=== PATIENT | female | born 1940 | race Caucasian/White ===

== ENCOUNTER 2020-04-27 11:16 | Inpatient (IN) | payer OTHER ==
[2020-04-27 11:20] VITALS: BMI 27.4
[2020-04-27 12:58] LABS: BASO % 0.2 % (0-2.0); HEMATOCRIT 41.8 % (32.4-45.2); HEMOGLOBIN 14.3 GM/dL (10.7-15.3); MCH 30.8 pg (25.7-33.7); MCHC 34.1 g/dl (32.0-36.0); MEAN CELL VOLUME 90.1 fl (80-96); MEAN PLT VOLUME 8.5 fl (7.5-11.1); MONO % 6.7 % (3.8-10.2); NEUT % 86.1 % (42.8-82.8); PLATELET COUNT 222 K/MM3 (134-434); RBC 4.64 M/mm3 (3.60-5.2); RDW 13.7 % (11.6-15.6); WHITE BLOOD COUNT 7.8 K/mm3 (4.0-10.0)
[2020-04-27] MEDS ORDERED: ACETAMINOPHEN 1000 MG/100 ML VIAL (NON FORMULARY) IVPB ONE (13:08)
[2020-04-27 13:11] LABS: VENOUS BASE EXCESS -3.9 mmol/L (-2-2); VENOUS O2 SATURATION 36.8 % (70-80); VENOUS PCO2 40.9 mmHg (38-52); VENOUS PH 7.341 (7.310-7.410)
[2020-04-27] MEDS ORDERED: LACTATED RINGERS SOLUTION 1000 ML INFUS.BAG IV ONE (13:15)
[2020-04-27 13:17] LABS: INR 0.93 (0.83-1.09); PROTHROMBIN TIME (PATIENT) 11.3 SEC (9.7-13.0)
[2020-04-27 13:25] LABS: ACTIVATED PTT 28.3 SECONDS (25.2-36.5)
[2020-04-27 13:26] LABS: CALCIUM 9.1 mg/dL (8.5-10.1); CHLORIDE 120 mmol/L (98-107); POTASSIUM 4.8 mmol/L (3.5-5.1)
[2020-04-27 13:28] LABS: ALBUMIN 3.8 g/dl (3.4-5.0); BLOOD UREA NITROGEN 17.6 mg/dL (7-18); CO2 23 mmol/L (21-32); GLUCOSE,RANDOM 107 mg/dL (74-106); MAGNESIUM 2.2 mg/dL (1.8-2.4)
[2020-04-27 13:31] LABS: CREATININE 1.1 mg/dL (0.55-1.3); SGOT/AST 47 U/L (15-37); SGPT/ALT 28 U/L (13-61)
[2020-04-27 13:33] LABS: BILIRUBIN,TOTAL 0.9 mg/dL (0.2-1); TOT PROT 7.8 g/dl (6.4-8.2)
[2020-04-27 13:34] LABS: ALK PHOS 204 U/L (45-117)
[2020-04-27 13:53] LABS: BILIRUBIN,DIRECT 0.3 mg/dL (0.0-0.2)
[2020-04-27 13:56] LABS: ANION GAP -3 MMOL/L (8-16); SODIUM 140 mmol/L (136-145)
[2020-04-27 13:58] LABS: LDH 309 U/L (84-246)
[2020-04-27] MEDS ORDERED: ACETAMINOPHEN INJECTION 100 ML IVPB ONE (14:46)
[2020-04-27] MEDS ORDERED: DEXAMETHASONE SOD PHOSPHATE 4 MG/1 ML VIAL IVPUSH ONE (15:25)
[2020-04-27] MEDS ORDERED: DEXAMETHASONE SOD PHOSPHATE 10 MG/1 ML VIAL ONE (15:41)
[2020-04-27] MEDS ORDERED: LIDOCAINE 5% TOPICAL PATCH TP ONE (18:01)
[2020-04-27] MEDS ORDERED: LIDOCAINE 5% TOPICAL PATCH ONE (19:13)
[2020-04-27] MEDS ORDERED: ACETAMINOPHEN 325 MG TABLET (FP) PO PRN (21:11)
[2020-04-27] MEDS ORDERED: ALBUTEROL SO4 HFA INHALER IH PRN (21:12)
[2020-04-27] MEDS: FAMOTIDINE 20 MG TABLET PO SCH (22:50)
[2020-04-28] MEDS ORDERED: LIDOCAINE PATCH REMOVAL MC SCH (06:00)
[2020-04-28 08:17] LABS: BASO % 0.2 % (0-2.0); HEMATOCRIT 35.3 % (32.4-45.2); HEMOGLOBIN 12.2 GM/dL (10.7-15.3); LYMPH % 12.7 % (8-40); MCH 30.7 pg (25.7-33.7); MCHC 34.5 g/dl (32.0-36.0); MEAN CELL VOLUME 89.1 fl (80-96); MEAN PLT VOLUME 8.9 fl (7.5-11.1); MONO % 9.1 % (3.8-10.2); PLATELET COUNT 183 K/MM3 (134-434); RBC 3.96 M/mm3 (3.60-5.2); RDW 13.6 % (11.6-15.6); WHITE BLOOD COUNT 4.6 K/mm3 (4.0-10.0)
[2020-04-28 08:44] LABS: CHLORIDE 109 mmol/L (98-107); POTASSIUM 3.9 mmol/L (3.5-5.1); SODIUM 142 mmol/L (136-145)
[2020-04-28 08:49] LABS: ALBUMIN 2.8 g/dl (3.4-5.0); ANION GAP 9 MMOL/L (8-16); BLOOD UREA NITROGEN 17.8 mg/dL (7-18); CALCIUM 8.1 mg/dL (8.5-10.1); CO2 23 mmol/L (21-32); GLUCOSE,RANDOM 91 mg/dL (74-106)
[2020-04-28 08:52] LABS: CREATININE 0.8 mg/dL (0.55-1.3); SGPT/ALT 23 U/L (13-61)
[2020-04-28 08:53] LABS: BILIRUBIN,TOTAL 0.5 mg/dL (0.2-1); LDH 208 U/L (84-246); PHOSPHOROUS 3.9 mg/dL (2.5-4.9); SGOT/AST 30 U/L (15-37)
[2020-04-28 09:06] LABS: ALK PHOS 156 U/L (45-117)
[2020-04-28] MEDS ORDERED: CHOLECALCIFEROL (VIT D3) 1,000 UNIT (25 MCG) TABLET PO SCH (10:00)
[2020-04-28] MEDS: DEXAMETHASONE SOD PHOSPHATE 4 MG/1 ML VIAL IVPUSH SCH (10:15)
[2020-04-28] MEDS: ZINC SULFATE 220 MG CAPSULE (FP) PO SCH (10:15)
[2020-04-28] MEDS: amLODIPine BESYLATE 5 MG TABLET (FP) PO SCH (10:15)
[2020-04-28] MEDS: FAMOTIDINE 20 MG TABLET PO SCH ×2 (10:15→21:58)
[2020-04-28] MEDS: ENOXAPARIN NA (PORCINE) 40 MG/0.4 ML DISP.SYRIN SQ SCH (10:15)
[2020-04-28] MEDS: ASCORBIC ACID 500 MG TABLET (FP) PO SCH (10:16)
[2020-04-28] MEDS: BUDESONIDE/FORMETEROL FUMARATE 160/4.5 mcg INHALER IH SCH ×2 (10:16→22:10)
[2020-04-28] MEDS: CHOLECALCIFEROL (VIT D3) 1,000 UNIT (25 MCG) TABLET PO SCH (11:45)
[2020-04-28] MEDS: ATORVASTATIN CA 40 MG TABLET (FP) PO SCH (21:58)
[2020-04-29 07:29] LABS: BASO % 0.2 % (0-2.0); HEMATOCRIT 35.4 % (32.4-45.2); HEMOGLOBIN 12.1 GM/dL (10.7-15.3); LYMPH % 10.4 % (8-40); MCH 30.8 pg (25.7-33.7); MCHC 34.2 g/dl (32.0-36.0); MEAN CELL VOLUME 90.1 fl (80-96); MEAN PLT VOLUME 9.1 fl (7.5-11.1); NEUT % 84.4 % (42.8-82.8); PLATELET COUNT 205 K/MM3 (134-434); RBC 3.93 M/mm3 (3.60-5.2); RDW 13.8 % (11.6-15.6); WHITE BLOOD COUNT 6.8 K/mm3 (4.0-10.0)
[2020-04-29 08:04] LABS: POTASSIUM 3.6 mmol/L (3.5-5.1)
[2020-04-29 08:16] LABS: CALCIUM 8.6 mg/dL (8.5-10.1)
[2020-04-29 08:17] LABS: ALBUMIN 2.8 g/dl (3.4-5.0); MAGNESIUM 2.2 mg/dL (1.8-2.4)
[2020-04-29 08:22] LABS: BILIRUBIN,TOTAL 0.5 mg/dL (0.2-1); TOT PROT 6.1 g/dl (6.4-8.2)
[2020-04-29 08:24] LABS: CREATININE 0.9 mg/dL (0.55-1.3)
[2020-04-29] MEDS: ENOXAPARIN NA (PORCINE) 40 MG/0.4 ML DISP.SYRIN SQ SCH (09:38)
[2020-04-29] MEDS: CHOLECALCIFEROL (VIT D3) 1,000 UNIT (25 MCG) TABLET PO SCH (09:38)
[2020-04-29] MEDS: ZINC SULFATE 220 MG CAPSULE (FP) PO SCH (09:39)
[2020-04-29] MEDS: FAMOTIDINE 20 MG TABLET PO SCH ×2 (09:39→22:19)
[2020-04-29] MEDS: amLODIPine BESYLATE 5 MG TABLET (FP) PO SCH (09:39)
[2020-04-29] MEDS: ASCORBIC ACID 500 MG TABLET (FP) PO SCH (09:39)
[2020-04-29] MEDS: BUDESONIDE/FORMETEROL FUMARATE 160/4.5 mcg INHALER IH SCH ×2 (09:39→22:19)
[2020-04-29] MEDS: DEXAMETHASONE SOD PHOSPHATE 4 MG/1 ML VIAL IVPUSH SCH (09:39)
[2020-04-29] MEDS ORDERED: POTASSIUM CHLORIDE TABS 20 MEQ TABLET.ER (FP) PO ONE (14:44)
[2020-04-29] MEDS ORDERED: PT OWN MED DRAWER 7, Y5N ONE (15:06)
[2020-04-29] MEDS: ATORVASTATIN CA 40 MG TABLET (FP) PO SCH (22:19)
[2020-04-30 07:39] LABS: BASO % 0.3 % (0-2.0); HEMATOCRIT 33.6 % (32.4-45.2); HEMOGLOBIN 11.5 GM/dL (10.7-15.3); LYMPH % 14.5 % (8-40); MCH 30.9 pg (25.7-33.7); MCHC 34.3 g/dl (32.0-36.0); MEAN CELL VOLUME 90.1 fl (80-96); MEAN PLT VOLUME 8.9 fl (7.5-11.1); MONO % 12.1 % (3.8-10.2); NEUT % 73.1 % (42.8-82.8); PLATELET COUNT 198 K/MM3 (134-434); RBC 3.73 M/mm3 (3.60-5.2); RDW 13.6 % (11.6-15.6); WHITE BLOOD COUNT 5.1 K/mm3 (4.0-10.0)
[2020-04-30 08:06] LABS: POTASSIUM 4.1 mmol/L (3.5-5.1)
[2020-04-30 08:57] LABS: CALCIUM 8.2 mg/dL (8.5-10.1)
[2020-04-30 08:58] LABS: ALBUMIN 2.6 g/dl (3.4-5.0); BLOOD UREA NITROGEN 17.7 mg/dL (7-18); MAGNESIUM 2.1 mg/dL (1.8-2.4)
[2020-04-30] MEDS: ASCORBIC ACID 500 MG TABLET (FP) PO SCH (08:59)
[2020-04-30] MEDS: ENOXAPARIN NA (PORCINE) 40 MG/0.4 ML DISP.SYRIN SQ SCH (08:59)
[2020-04-30] MEDS: ZINC SULFATE 220 MG CAPSULE (FP) PO SCH (09:00)
[2020-04-30] MEDS: DEXAMETHASONE SOD PHOSPHATE 4 MG/1 ML VIAL IVPUSH SCH (09:00)
[2020-04-30] MEDS: amLODIPine BESYLATE 5 MG TABLET (FP) PO SCH (09:00)
[2020-04-30] MEDS: CHOLECALCIFEROL (VIT D3) 1,000 UNIT (25 MCG) TABLET PO SCH (09:00)
[2020-04-30] MEDS: FAMOTIDINE 20 MG TABLET PO SCH ×2 (09:00→21:14)
[2020-04-30] MEDS: BUDESONIDE/FORMETEROL FUMARATE 160/4.5 mcg INHALER IH SCH ×2 (09:00→21:18)
[2020-04-30 09:01] LABS: CREATININE 0.8 mg/dL (0.55-1.3)
[2020-04-30 09:02] LABS: BILIRUBIN,TOTAL 0.6 mg/dL (0.2-1)
[2020-04-30 09:03] LABS: TOT PROT 5.8 g/dl (6.4-8.2)
[2020-04-30] MEDS: ATORVASTATIN CA 40 MG TABLET (FP) PO SCH (21:14)
[2020-05-01 09:38] LABS: BASO % 0.1 % (0-2.0); EOS % 0.1 % (0-4.5); HEMATOCRIT 36.7 % (32.4-45.2); HEMOGLOBIN 12.7 GM/dL (10.7-15.3); LYMPH % 14.6 % (8-40); MCH 30.7 pg (25.7-33.7); MCHC 34.7 g/dl (32.0-36.0); MEAN CELL VOLUME 88.7 fl (80-96); MEAN PLT VOLUME 9.3 fl (7.5-11.1); MONO % 13.1 % (3.8-10.2); NEUT % 72.1 % (42.8-82.8); PLATELET COUNT 282 K/MM3 (134-434); RBC 4.13 M/mm3 (3.60-5.2); RDW 13.4 % (11.6-15.6); WHITE BLOOD COUNT 7.1 K/mm3 (4.0-10.0)
[2020-05-01 09:53] LABS: POTASSIUM 4.1 mmol/L (3.5-5.1)
[2020-05-01] MEDS: DEXAMETHASONE SOD PHOSPHATE 4 MG/1 ML VIAL IVPUSH SCH (10:25)
[2020-05-01] MEDS: amLODIPine BESYLATE 5 MG TABLET (FP) PO SCH (10:25)
[2020-05-01] MEDS: ENOXAPARIN NA (PORCINE) 40 MG/0.4 ML DISP.SYRIN SQ SCH (10:25)
[2020-05-01] MEDS: BUDESONIDE/FORMETEROL FUMARATE 160/4.5 mcg INHALER IH SCH ×2 (10:25→21:08)
[2020-05-01] MEDS: ASCORBIC ACID 500 MG TABLET (FP) PO SCH (10:25)
[2020-05-01] MEDS: FAMOTIDINE 20 MG TABLET PO SCH ×2 (10:26→21:07)
[2020-05-01] MEDS: CHOLECALCIFEROL (VIT D3) 1,000 UNIT (25 MCG) TABLET PO SCH (10:26)
[2020-05-01] MEDS: ZINC SULFATE 220 MG CAPSULE (FP) PO SCH (10:26)
[2020-05-01 10:27] LABS: CALCIUM 8.7 mg/dL (8.5-10.1)
[2020-05-01 10:28] LABS: ALBUMIN 2.9 g/dl (3.4-5.0); BLOOD UREA NITROGEN 15.6 mg/dL (7-18); MAGNESIUM 2.2 mg/dL (1.8-2.4)
[2020-05-01 10:31] LABS: CREATININE 0.8 mg/dL (0.55-1.3)
[2020-05-01 10:32] LABS: TOT PROT 6.5 g/dl (6.4-8.2)
[2020-05-01] MEDS: ATORVASTATIN CA 40 MG TABLET (FP) PO SCH (21:07)
[2020-05-02] MEDS: ASCORBIC ACID 500 MG TABLET (FP) PO SCH (09:44)
[2020-05-02] MEDS: ZINC SULFATE 220 MG CAPSULE (FP) PO SCH (09:44)
[2020-05-02] MEDS: amLODIPine BESYLATE 5 MG TABLET (FP) PO SCH (09:44)
[2020-05-02] MEDS: DEXAMETHASONE SOD PHOSPHATE 4 MG/1 ML VIAL IVPUSH SCH (09:44)
[2020-05-02] MEDS: ENOXAPARIN NA (PORCINE) 40 MG/0.4 ML DISP.SYRIN SQ SCH (09:44)
[2020-05-02] MEDS: FAMOTIDINE 20 MG TABLET PO SCH ×2 (09:45→21:45)
[2020-05-02] MEDS: BUDESONIDE/FORMETEROL FUMARATE 160/4.5 mcg INHALER IH SCH ×2 (09:45→21:45)
[2020-05-02] MEDS: CHOLECALCIFEROL (VIT D3) 1,000 UNIT (25 MCG) TABLET PO SCH (09:45)
[2020-05-02 15:36] LABS: BASO % 0.2 % (0-2.0); HEMATOCRIT 34.8 % (32.4-45.2); HEMOGLOBIN 11.9 GM/dL (10.7-15.3); LYMPH % 4.2 % (8-40); MCH 30.3 pg (25.7-33.7); MCHC 34.1 g/dl (32.0-36.0); MEAN CELL VOLUME 88.7 fl (80-96); MEAN PLT VOLUME 8.7 fl (7.5-11.1); MONO % 4.2 % (3.8-10.2); NEUT % 91.4 % (42.8-82.8); PLATELET COUNT 299 K/MM3 (134-434); RBC 3.92 M/mm3 (3.60-5.2); RDW 13.4 % (11.6-15.6)
[2020-05-02 15:51] LABS: POTASSIUM 3.9 mmol/L (3.5-5.1)
[2020-05-02 15:53] LABS: CALCIUM 8.5 mg/dL (8.5-10.1)
[2020-05-02 15:54] LABS: BLOOD UREA NITROGEN 19.8 mg/dL (7-18); MAGNESIUM 1.8 mg/dL (1.8-2.4)
[2020-05-02 15:57] LABS: ALBUMIN 2.7 g/dl (3.4-5.0); CREATININE 1.2 mg/dL (0.55-1.3)
[2020-05-02 15:59] LABS: BILIRUBIN,TOTAL 0.5 mg/dL (0.2-1)
[2020-05-02 16:01] LABS: TOT PROT 5.9 g/dl (6.4-8.2)
[2020-05-02 17:15] LABS: ANISOCYTOSIS 0; MACROCYTOSIS 0; PLATELET ESTIMATE NORMAL
[2020-05-02] MEDS: ATORVASTATIN CA 40 MG TABLET (FP) PO SCH (21:44)
[2020-05-03] MEDS: ZINC SULFATE 220 MG CAPSULE (FP) PO SCH (09:57)
[2020-05-03] MEDS: amLODIPine BESYLATE 5 MG TABLET (FP) PO SCH (09:57)
[2020-05-03] MEDS: CHOLECALCIFEROL (VIT D3) 1,000 UNIT (25 MCG) TABLET PO SCH (09:57)
[2020-05-03] MEDS: ASCORBIC ACID 500 MG TABLET (FP) PO SCH (09:57)
[2020-05-03] MEDS: BUDESONIDE/FORMETEROL FUMARATE 160/4.5 mcg INHALER IH SCH (09:58)
[2020-05-03] MEDS: ENOXAPARIN NA (PORCINE) 40 MG/0.4 ML DISP.SYRIN SQ SCH (09:58)
[2020-05-03] MEDS: FAMOTIDINE 20 MG TABLET PO SCH (09:58)
[2020-05-03] MEDS ORDERED: DEXAMETHASONE 4 MG TABLET (FP) PO SCH (10:00)
[2020-05-03 11:15] VITALS: BP 132/74; PULSE 81; TEMP 98
== END 2020-05-03 12:23 | disposition home or self-care (01) | DRG 177 ==
LOC: JER 11:16 → JERBED 17:21 → J4W 21:06
PROVIDERS: ADMIT Internal Medicine; ATTEND Nurse Practitioner Family
DX: U07.1 COVID-19 (principal); J12.82 Pneumonia due to coronavirus disease 2019; J96.01 Acute respiratory failure with hypoxia; I10 Essential (primary) hypertension; E78.5 Hyperlipidemia, unspecified; M81.0 Age-related osteoporosis without current pathological fracture; E55.9 Vitamin D deficiency, unspecified; R94.31 Abnormal electrocardiogram [ECG] [EKG]; Z99.81 Dependence on supplemental oxygen; N81.10 Cystocele, unspecified
CPT/HCPCS: 36415; 71045-TC-FY; 71046-TC-FY; 71275-TC; 76705-TC; 80053; 82248; 82306; 82550; 82728; 82803; 83615; 83735; 84100; 84443; 84484; 85025; 85379; 85610; 85730; 86140; 86769; 86850; 86900; 86901; 87040; 87804; 93005; 93010; 99285-25; C9803; J0131; Q9967; U0003